=== PATIENT | male | born 1990 | race Caucasian/White ===

== ENCOUNTER 2021-10-01 12:17 | Emergency (ER) | payer OTHER, SELFPAY ==
--- NOTE | 2021-10-01 12:18 | PC.NURSE ---
Patient walked out of ED without difficulty, angry that he will have to wait for a room and that I am unable to give him anxiety medications at the intake desk.
== END 2021-10-01 13:02 | disposition left against medical advice (07) ==
DX: Z53.21 Procedure and treatment not carried out due to patient leaving prior to being seen by health care provider (principal)
CPT/HCPCS: 99199

== ENCOUNTER 2023-10-24 12:52 | Emergency (ER) | payer OTHER, SELFPAY ==
[2023-10-24 12:54] VITALS: BP 139/100; PULSE 99; RESP 24; TEMP 36.3; O2SAT 100
--- NOTE | 2023-10-24 13:12 | ECG_ITS ---
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 Measurements Intervals [place] Rate: 82 P: 52 [place]: 169 QRS: 18 QRSD: 89 T: 22 QT: 349 QTc: 409 Interpretive Statements SINUS RHYTHM NORMAL ELECTROCARDIOGRAM No previous ECG available for comparison Electronically Signed On 10-25-2023 07:56:03 CDT by Roberto Newsome M.D.
--- NOTE | 2023-10-24 13:13 | ED.GENADULT ---
HPI - General Adult General Chief complaint: Anxiety Stated complaint: anxiety Time Seen by Provider: 10/24/23 13:12 History of Present Illness HPI narrative: Patient is a 33-year-old male with history of anxiety disorder, PTSD here with concerns for a panic attack. Patient states that he was recently incarcerated and when [place] living they did not transfer his medications and he has been out of his Atarax for the last 5 days or so. He states over the last 2 days he has had extreme worsening that this anxiety. He notes that he has impending sense of doom, shortness of breath, tingling in his mouth, hands, feet and feeling as though he may pass out. He notes he is prescribed 75 mg of hydroxyzine in extended release daily. He typically follows with either Derick or Courtney for his mental health treatment. He denies any drug use, denies any alcohol use. He denies any suicidal or homicidal ideation. Related Data Allergies Allergy/AdvReac Type Severity Reaction Status Date / Time No Known Allergies Allergy Verified 10/24/23 13:56 Review of Systems Review of Systems: All systems reviewed & are unremarkable except as noted in HPI and below PMFSH Social History Social History Substance use type: does not use Exam Narrative: GENERAL: Well-appearing, well-nourished, and in no acute distress. HEAD: Normocephalic, atraumatic. EYES: PERRLA and EOMI. ENT: Nares clear. Mucous membranes moist. NECK: Supple. CHEST: Clear to auscultation. No respiratory distress. HEART: Tachycardic. Normal peripheral pulses. ABDOMEN: Soft, nontender, nondistended. EXTREMITIES: Normal range of motion. No edema. SKIN: Warm, dry, no rash. NEURO: No focal deficits. Alert and oriented x3. No sensory deficits appreciated. PSYCH: Normal mood and affect. Course Course Emergency Course: Chart review performed. Patient here with anxiety. Has reportedly been out of his Atarax for 5-7 days. Triage vitals show tachypnea. Patient seen evaluated, nontoxic appearing. Suspect he is likely having worsening anxiety due to lack of his medication over the last 5 days. Will do dose of Ativan here as well as a screening EKG. He has clear bilateral lung sounds, no neurologic deficits on exam. Not believe there is currently no indication for lab work are imaging at this time. Will do dose of ativan and reevaluate. Likely plan for discharge with short term prescription for his home hydroxyzine until he is able to follow with his primary mental health provider. Patient agreeable to workup and plan. Patient continues to have symptoms after dose of Ativan. Will give dose of Atarax. Given persistent symptoms, will do basic labs to evaluate for possible electrolyte abnormalities. Patient agreeable. Patient endorsed continued symptoms to nursing staff. Will attempt haldol/benadryl. Patient refused haldol/benadryl. Lab work and EKG grossly normal. Spoke with patient and reevaluated. He does note that his symptoms had improved with ativan, just not fully gone away. Will do additional dose of ativan here in the department and discussed plan for refilling his prescription for Atarax at discharge and he can discuss need for benzodiazepines or any additional medications with his psychiatry team. The results of pertinent diagnostic studies and exam findings were discussed. The patient?s provisional diagnosis and plan of care were discussed with the patient and present family. The patient and/or present family expressed understanding of the diagnosis and plan. The nurse was instructed to provide written instructions and appropriate follow-up information. The patient understands their need and responsibility to obtain additional follow-up as instructed. The risks of medications administered and prescribed were discussed with the patient and family present. Vital Signs Vital signs: Vital Signs Temperature 97.3 F L 10/24/23 12:54 Pulse Ra
[2023-10-24] MEDS: LORazepam (*CRX) 1 MG TABLET PO ×2 (13:56→17:28)
[2023-10-24] MEDS: hydrOXYzine HCL 25 MG TABLET 50 MG PO (14:40)
[2023-10-24 15:26] LABS: Basophils Percent Auto 0.4 % (0.2-1.2); Eosinophils Absolute Auto 0.2 K/mm3 (0-0.3); Eosinophils Percent Auto 1.8 % (0-4.4); Hematocrit 38.5 % (42.0-52.0); Hemoglobin 13.2 g/dL (14.0-18.0); Immature Granulocyte Absolute 0.03 K/mm3 (0.00-0.031); Immature Granulocyte Percent A 0.4 % (0-0.5); Lymphocytes Absolute Auto 2.68 K/mm3 (0.9-3.2); Lymphocytes Percent Auto 31.3 % (18.3-44.2); Mean Corpuscular HGB Conc 34.3 g/dl (32-36); Mean Corpuscular Hemoglobin 30.1 pg (26-34); Mean Corpuscular Volume 87.9 fl (80-100); Mean Platelet Volume 9.5 fl (7.4-10.4); Monocytes Percent Auto 11.3 % (2.6-8.5); Neutrophils Absolute Auto 4.7 K/mm3 (1.3-6.7); Neutrophils Percent Auto 54.8 % (45.5-73.1); Platelet Count Result 314 k/mm3 (150-375); Red Blood Count 4.38 M/mm3 (4.6-6.20); Red Cell Distribution Width 13.2 % (11.5-14.5); White Blood Count 8.6 K/mm3 (4.5-10.0)
[2023-10-24 15:47] LABS: Alanine Aminotransferase 23 U/L (6-50); Albumin Level 4.2 g/dL (3.5-5.1); Alkaline Phosphatase 54 U/L (38-126); Anion Gap 7 mmol/L (4-12); Aspartate Amino Transferase 20 U/L (17-59); Bilirubin,Total 0.4 mg/dL (0.2-1.3); Blood Urea Nitrogen 12 mg/dL (9-20); Calcium 8.9 mg/dL (8.4-10.2); Carbon Dioxide 26 mmol/L (22-30); Chloride 109 mmol/L (98-107); Estimated CRCL calculation 155 ml/min; Estimated Glomerular Filt Rate > 60; Glucose 96 mg/dL (65-110); Potassium 3.9 mmol/L (3.4-5.0); Sodium 142 mmol/L (137-145)
--- NOTE | 2023-10-24 16:46 | PC.NURSE ---
went to start iv and give pt ordered medication. pt refusing medication, stating i just want what you guys prescribed me years ago. pt is unable to remember what medication was or when exactly he was prescribed it. pt ademantly refusing medication at this time
[2023-10-24 17:02] VITALS: BP 139/75; PULSE 78; RESP 16; TEMP 36.3; O2SAT 99
[2023-10-24 17:56] VITALS: BP 128/77; PULSE 70; RESP 16; TEMP 37; O2SAT 99
== END 2023-10-24 17:57 | disposition home or self-care (01) ==
PROVIDERS: Emergency Provider Student in an Organized Health Care Education/Training Program
DX: F41.9 Anxiety disorder, unspecified (principal); F43.10 Post-traumatic stress disorder, unspecified
CPT/HCPCS: 36415; 80053; 83735; 85025; 93005; 99283; A9270

== ENCOUNTER 2024-11-03 12:29 | Emergency (ER) | payer OTHER, SELFPAY ==
[2024-11-03 12:33] VITALS: BP 124/90; PULSE 105; RESP 22; O2SAT 100
--- NOTE | 2024-11-03 13:16 | ED.PSYCH ---
HPI - Psych General Chief Complaint: Psychiatric Symptoms <ANKUR Abreu Last Filed: 11/03/24 19:00> Stated Complaint: SI, Anxiety, off meds for several months <ANKUR Abreu Last Filed: 11/03/24 19:00> Time Seen by Provider: 11/03/24 12:42 <ANKUR Abreu Last Filed: 11/03/24 19:00> Source: patient <ANKUR Abreu Last Filed: 11/03/24 19:00> Mode of arrival: ambulatory <ANKUR Abreu Last Filed: 11/03/24 19:00> Limitations: no limitations <ANKUR Abreu Last Filed: 11/03/24 19:00> History of Present Illness HPI Narrative: Patient is a 34-year-old male, with past medical history of depression/anxiety, who presents to the ED with report of anxiety and SI. Patient reports he has been feeling increasingly anxious and having suicidal thoughts over the last few weeks. States he has been off his normal psychiatric medications for quite some time. Previously was on hydroxyzine, clonidine, Ativan. Reports having a specific plan for killing himself, but does not want to talk about it. Denies any attempts today. Has had previous suicide attempts. States he wants to self admit himself to a psychiatric hospital. Reports previous hospitalizations. <ANKUR Abreu Last Filed: 11/03/24 19:00> Related Data Allergies/Adverse Reactions: Allergies Allergy/AdvReac Type Severity Reaction Status Date / Time No Known Allergies Allergy Verified 11/03/24 12:30 <ANKUR Abreu Last Filed: 11/03/24 19:00> Review of Systems Review of Systems: All systems reviewed & are unremarkable except as noted in HPI. <ANKUR Abreu Last Filed: 11/03/24 19:00> All systems reviewed & are unremarkable except as noted in HPI and below <ANKUR Abreu Last Filed: 11/03/24 19:00> PMFSH Social History Social History: Social History Substance use type: does not use <Edel Diaz PA-C - Last Filed: 11/03/24 19:00> Exam Narrative: GENERAL: Well appearing, well-nourished, non-toxic, in no acute distress. HEAD: Normocephalic, atraumatic. RESPIRATORY: Airway patent, respirations nonlabored. CARDIOVASCULAR: Regular rate and rhythm MUSCULOSKELETAL: Moves all extremities. No gross deformities. SKIN: Warm, dry, normal color. NEURO: A&O X3. Speech clear. PSYCHIATRIC: Somewhat agitated and anxious appearing. Normal interaction. 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 I performed all aspects of the MDM as documented. <Lazarus Martinez MD - Last Filed: 11/09/24 15:16> Vital Signs Vital signs: Vital Signs Pulse Rate 105 H 11/03/24 12:33 Respiratory Rate 22 H 11/03/24 12:33 Blood Pressure 124/90 11/03/24 12:33 Pulse Oximetry 100 11/03/24 12:33 Oxygen Delivery Room Air 11/03/24 12:33 Temperature 98.8 F 11/03/24 18:55 Pulse Rate 70 11/03/24 21:51 Respiratory Rate 17 11/03/24 21:51 Blood Pressure 144/90 H 11/03/24 21:51 Pulse Oximetry 99 11/03/24 21:51 Oxygen Delivery Room Air 11/03/24 12:33 <Edel Diaz PA-C - Last Filed: 11/03/24 19:00> Vital Signs Pulse Rate 105 H 11/03/24 12:33 Respiratory Rate 22 H 11/03/24 12:33 Blood Pressure 124/90 11/03/24 12:33 Pulse Oximetry 100 11/03/24 12:33 Oxygen Delivery Room Air 11/03/24 12:33 Temperature 98.8 F 11/03/24 18:55 Pulse Rate 70 11/03/24 21:51 Respiratory Rate 17 11/03/24 21:51 Blood Pressure 144/90 H 11/03/24 21:51 Pulse Oximetry 99 11/03/24 21:51 Oxygen Delivery Room Air 11/03/24 12:33 <Lazarus Martinez MD - Last Filed: 11/09/24 15:16> MDM - Psych MDM Narrative Medical decision making narrative: Patient presented to ED with anxiety, SI. ED psych workup was initiated. Workup unremarkable. UDS positive for amphetamines. Patient medically cleared to undergo psychiatric evaluation by crisis. Crisis evaluated patient and determined him to meet criteria for inpatient psychiatric placement. Patient currently under voluntary status. Awaiting bed placement. Patient received bed at [facility]. Will arrange for transportation. Patient has not had any issues throughout ED stay. <Edel Diaz PA-C - Last Filed: 11/03/24 19:00> Medical Records Attestation: I reviewed the patient's medical records. <Edel Diaz PA-C - Last Filed: 11/03/24 19:00> Lab Data Attestation: I reviewed the patient's lab results. <Edel Diaz PA-C - Last Filed: 11/03/24 19:00> Result diagrams: 11/03/24 13:16 11/03/24 13:16 <Edel Diaz PA-C - Last Filed: 11/03/24 19:00> Labs: Lab Results 11/03/24 11/03/24 11/03/24 Range/Units 13:15 13:16 13:19 WBC 13.9 H (4.5-10.0) K/mm3 RBC 5.40 (4.6-6.20) M/mm3 Hgb 15.9 (14.0-18.0) g/dL Hct 47.6 (42.0-52.0) % MCV 88.1 (80-100) fl MCH 29.4 (26-34) pg MCHC 33.4 (32-36) g/dl RDW 13.0 (11.5-14.5) % Plt Count 453 H (150-375) k/mm3 MPV 10.0 (7.4-10.4) fl Immature Gran % (Auto) 0.3 (0-0.5) % Neut % (Auto) 64.4 (45.5-73.1) % Lymph % (Auto) 20.4 (18.3-44.2) % [place] % (Auto) 10.8 H (2.6-8.5) % Eos % (Auto) 3.7 (0-4.4) % Baso % (Auto) 0.4 (0.2-1.2) % Lymph # (Auto) 2.83 (0.9-3.2) K/mm3 [place] # (Auto) 1.5 H (0.1-0.6) K/mm3 Eos # (Auto) 0.5 H (0-0.3) K/mm3 Baso # (Auto) 0.1 (0.0-0.1) K/mm3 Abs Immat Gran (auto) 0.04 H (0.00-0.031) K/mm3 Absolute Neuts (auto) 8.9 H (1.3-6.7) K/mm3 Absolute Nucleated RBC 0.000 (0.0-0.012) K/mm3 Nucleated RBC % 0.0 (0.0-0.2) % Sodium 140 (137-145) mmol/L Potassium 3.5 (3.4-5.0) mmol/L Chloride 105 (98-107) mmol/L Carbon Dioxide 23 (22-30) mmol/L Anion Gap 12 (4-12) mmol/L BUN 12 (9-20) mg/dL Creatinine 0.69 L (0.7-1.3) mg/dL Estim Creat Clear Calc Not Reportable Estimated GFR > 60 (59 - ) Glucose 99 (65-110) mg/dL POC Capillary Glucose 94 (65-105) mg/dl Calcium 9.2 (8.4-10.2) mg/dL Total Bilirubin 0.3 (0.2-1.3) mg/dL AST 24 (17-59) U/L ALT 19 (6-50) U/L Alkaline Phosphatase 69 (38-126) U/L Total Protein 7.3 (6.3-8.2) g/dL Albumin 4.5 (3.5-5.1) g/dL TSH (Reflex) 1.020 (0.465-4.68) uIU/mL Urine Color Dark yellow (Yellow) Urine Appearance Clear (Clear) Urine pH 6.0 (5.0-9.0) Ur Specific [place] 1.037 H (1.001-1.035) Urine Protein 1+ H (Negative) mg/dL Urine Glucose (UA) Negative (Negative) mg/dL Urine Ketones 1+ H (Negative) mg/dL Ur Blood (Man) Negative (Negative) Urine Nitrate Negative (Negative) Urine Bilirubin Negative (Negative) Urine Urobilinogen 1.0 (<2.0) mg/dL Add Ur Microanalysis Reviewed Leukocyte Esterase Rfl Trace H (Negative) [place]/UL Urine RBC 0-2 (0-2) /hpf Urine WBC 0-5 (0-3) /hpf Ur Squamous Epith Cells None seen (Few) /hpf Calcium Oxalate Crystal Present (None) /hpf Urine Bacteria None seen /hpf Urine Casts 0-2 Salicylates < 1.0 L (2-20) mg/dL Urine Opiates Screen Negative (Negative) Urine Methadone Screen Negative (Negative) Acetaminophen < 10 L (10-30) ug/mL Ur Barbiturates Screen Negative (Negative) Ur Phencyclidine Scrn Negative (Negative) Ur Amphetamine Screen Positive A (Negative) U Benzodiazepines Scrn Negative (Negative) Urine Cocaine Screen Negative (Negative) U Cannabinoids Screen Negative (Negative) Ethyl Alcohol < 10 (<10) mg/dL SARS-CoV-2 RNA (RT-PCR) Negative (Negative) <Edel Diaz PA-C - Last Filed: 11/03/24 19:00> Lab Results 11/03/24 11/03/24 11/03/24 Range/Units 13:15 13:16 13:19 WBC 13.9 H (4.5-10.0) K/mm3 RBC 5.40 (4.6-6.20) M/mm3 Hgb 15.9 (14.0-18.0) g/dL Hct 47.6 (42.0-52.0) % MCV 88.1 (80-100) fl MCH 29.4 (26-34) pg MCHC 33.4 (32-36) g/dl RDW 13.0 (11.5-14.5) % Plt Count 453 H (150-375) k/mm3 MPV 10.0 (7.4-10.4) fl Immature Gran % (Auto) 0.3 (0-0.5) % Neut % (Auto) 64.4 (45.5-73.1) % Lymph % (Auto) 20.4 (18.3-44.2) % [place] % (Auto) 10.8 H (2.6-8.5) % Eos % (Auto) 3.7 (0-4.4) % Baso % (Auto) 0.4 (0.2-1.2) % Lymph # (Auto) 2.83 (0.9-3.2) K/mm3 [place] # (Auto) 1.5 H (0.1-0.6) K/mm3 Eos # (Auto) 0.5 H (0-0.3) K/mm3 Baso # (Auto) 0.1 (0.0-0.1) K/mm3 Abs Immat Gran (auto) 0.04 H (0.00-0.031) K/mm3 Absolute Neuts (auto) 8.9 H (1.3-6.7) K/mm3 Absolute Nucleated RBC 0.000 (0.0-0.012) K/mm3 Nucleated RBC % 0.0 (0.0-0.2) % Sodium 140 (137-145) mmol/L Potassium 3.5 (3.4-5.0) mmol/L Chloride 105 (98-107) mmol/L Carbon Dioxide 23 (22-30) mmol/L Anion Gap 12 (4-12) mmol/L BUN 12 (9-20) mg/dL Creatinine 0.69 L (0.7-1.3) mg/dL Estim Creat Clear Calc Not Reportable Estimated GFR > 60 (59 - ) Glucose 99 (65-110) mg/dL POC Capillary Glucose 94 (65-105) mg/dl Calcium 9.2 (8.4-10.2) mg/dL Total Bilirubin 0.3 (0.2-1.3) mg/dL AST 24 (17-59) U/L ALT 19 (6-50) U/L Alkaline Phosphatase 69 (38-126) U/L Total Protein 7.3 (6.3-8.2) g/dL Albumin 4.5 (3.5-5.1) g/dL TSH (Reflex) 1.020 (0.465-4.68) uIU/mL Urine Color Dark yellow (Yellow) Urine Appearance Clear (Clear) Urine pH 6.0 (5.0-9.0) Ur Specific [place] 1.037 H (1.001-1.035) Urine Protein 1+ H (Negative) mg/dL Urine Glucose (UA) Negative (Negative) mg/dL Urine Ketones 1+ H (Negative) mg/dL Ur Blood (Man) Negative (Negative) Urine Nitrate Negative (Negative) Urine Bilirubin Negative (Negative) Urine Urobilinogen 1.0 (<2.0) mg/dL Add Ur Microanalysis Reviewed Leukocyte Esterase Rfl Trace H (Negative) [place]/UL Urine RBC 0-2 (0-2) /hpf Urine WBC 0-5 (0-3) /hpf Ur Squamous Epith Cells None seen (Few) /hpf Calcium Oxalate Crystal Present (None) /hpf Urine Bacteria None seen /hpf Urine Casts 0-2 Salicylates < 1.0 L (2-20) mg/dL Urine Opiates Screen Negative (Negative) Urine Methadone Screen Negative (Negative) Acetaminophen < 10 L (10-30) ug/mL Ur Barbiturates Screen Negative (Negative) Ur Phencyclidine Scrn Negative (Negative) Ur Amphetamine Screen Positive A (Negative) U Benzodiazepines Scrn Negative (Negative) Urine Cocaine Screen Negative (Negative) U Cannabinoids Screen Negative (Negative) Ethyl Alcohol < 10 (<10) mg/dL SARS-CoV-2 RNA (RT-PCR) Negative (Negative) <Lazarus Martinez MD - Last Filed: 11/09/24 15:16> Discharge Plan Discharge Clinical Impression: Anxiety, Depression with suicidal ideation <Edel Diaz PA-C - Last Filed: 11/03/24 19:00> Patient Disposition: Psychiatric Hosp <Edel Diaz PA-C - Last Filed: 11/03/24 19:00> Condition: Serious <Edel Diaz PA-C - Last Filed: 11/03/24 19:00> Patient Language: Portuguese <Edel Diaz PA-C - Last Filed: 11/03/24 19:00> Prescriptions: No Action hydroxyzine pamoate 50 mg capsule 50 mg PO BID PRN (Reason: anxiety) Qty: 10 0RF <Edel Diaz PA-C - Last Filed: 11/03/24 19:00> Follow-up/Referrals: UNKNOWN,DOCTOR [Non-Staff] - <Edel Diaz PA-C - Last Filed: 11/03/24 19:00>
[2024-11-03 13:17] LABS: Glucose Point of Care 94 mg/dl (65-105)
[2024-11-03 13:29] LABS: Basophils Absolute Auto 0.1 K/mm3 (0.0-0.1); Basophils Percent Auto 0.4 % (0.2-1.2); Eosinophils Absolute Auto 0.5 K/mm3 (0-0.3); Eosinophils Percent Auto 3.7 % (0-4.4); Hematocrit 47.6 % (42.0-52.0); Hemoglobin 15.9 g/dL (14.0-18.0); Immature Granulocyte Absolute 0.04 K/mm3 (0.00-0.031); Immature Granulocyte Percent A 0.3 % (0-0.5); Lymphocytes Absolute Auto 2.83 K/mm3 (0.9-3.2); Lymphocytes Percent Auto 20.4 % (18.3-44.2); Mean Corpuscular HGB Conc 33.4 g/dl (32-36); Mean Corpuscular Hemoglobin 29.4 pg (26-34); Mean Corpuscular Volume 88.1 fl (80-100); Monocytes Absolute Auto 1.5 K/mm3 (0.1-0.6); Monocytes Percent Auto 10.8 % (2.6-8.5); Neutrophils Absolute Auto 8.9 K/mm3 (1.3-6.7); Neutrophils Percent Auto 64.4 % (45.5-73.1); Platelet Count Result 453 k/mm3 (150-375); White Blood Count 13.9 K/mm3 (4.5-10.0)
[2024-11-03 13:39] LABS: Alanine Aminotransferase 19 U/L (6-50); Albumin Level 4.5 g/dL (3.5-5.1); Alkaline Phosphatase 69 U/L (38-126); Anion Gap 12 mmol/L (4-12); Aspartate Amino Transferase 24 U/L (17-59); Bilirubin,Total 0.3 mg/dL (0.2-1.3); Blood Urea Nitrogen 12 mg/dL (9-20); Calcium 9.2 mg/dL (8.4-10.2); Carbon Dioxide 23 mmol/L (22-30); Chloride 105 mmol/L (98-107); Estimated Glomerular Filt Rate > 60; Glucose 99 mg/dL (65-110); Potassium 3.5 mmol/L (3.4-5.0); Sodium 140 mmol/L (137-145); Total Protein 7.3 g/dL (6.3-8.2)
[2024-11-03 13:41] LABS: Acetaminophen < 10 ug/mL (10-30); Salicylate < 1.0 mg/dL (2-20)
[2024-11-03 13:44] LABS: Add Urine Microscopic? YES; Appearance Urine Clear (Clear); Bacteria Urine None Seen /hpf; Bilirubin Urine Negative (Negative); Blood Urine Negative (Negative); Calcium Oxalate Crystals Urine Present /hpf; Color Urine Dark Yellow (Yellow); Ethanol < 10 mg/dL (<10); Glucose Urine UA Negative (Negative); Ketones Urine 1+ mg/dL (Negative); Leukocyte Esterase Ur Trace LEU/UL (Negative); Need Manual Microscopic Reviewed; Nitrate Urine Negative (Negative); Non Pathogenic Casts 0-2; Protein Urine 1+ mg/dL (Negative); RBC Urine 0-2 /hpf (0-2); Specific Grav Ur 1.037 (1.001-1.035); Squamous Epithelial Cell Urine None Seen /hpf (Few); WBC Urine 0-5 /hpf (0-3)
[2024-11-03] MEDS: LORazepam (*CRX) 0.5 MG TABLET PO (13:44)
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
--- OUTSIDE RECORDS SUMMARY | 2024-11-03 13:55 | XMS_ITS | Clinical Summary ---
Author Organization [facility] Address [address] [address] Care Team Providers Care Blasting Cap Assembler Name Role Phone Unavailable Primary Care Provider Unavailabl e Source Comments [facility],non-owned Affiliates and Associated Physician Practices is amultiple site organization consisting of ambulatory clinics and hospital sitesin [place], [place], [place] and [place]. This disclosure is being madepursuant to the Care Everywhere program and may not contain all information available regarding this patient. Last updated 18.[facility] Medications * Be aware that medications may not be up to date on this document. Alwaysverify current medications with the patient. HYDROcodone-acet aminophen (NORCO) 5-325 MG tablet Take 1 tablet by mouth q6h PRN (Pain). 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 Gender Identity Not on file Sexual Orientation Not on file Last Filed Vital Signs Vital Sign Reading Time Taken Comments Blood Pressure 126/76 05/06/2017 11:59 AM TELECOMMUNICATIONS 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 Pulse 96 05/06/2017 11:59 AM TELECOMMUNICATIONS 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 Temperature 36.5 C (97.7 F) 05/06/2017 6:22 AM TELECOMMUNICATIONS 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 Respiratory Rate 20 05/06/2017 11:59 AM TELECOMMUNICATIONS 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 Oxygen Saturation 94% 05/06/2017 7:49 AM TELECOMMUNICATIONS 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 Inhaled Oxygen Concentration - - Weight 99.8 kg (220 lb) 05/06/2017 6:22 AM TELECOMMUNICATIONS 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 Height 170.2 cm (5' 7) 05/06/2017 6:22 AM TELECOMMUNICATIONS 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 Body Mass Index 34.46 05/06/2017 6:22 AM TELECOMMUNICATIONS 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 Plan of Treatment Health Maintenance Due Date Last Done Comments HIV SCREENING 2006 HEPATITIS C SCREENING 04/17/2009 HEPATITIS B VACCINE (1 of 3 - 19+ 3-dose series) 2010 COVID-19 VACCINE (2023-2 5 season) 2024 DEPRESSION SCREENING 05/19/2024 INFLUENZA VACCINE (Season Ended) 2025 DTAP/TDAP/TD VACCINES (2 - T d or Tdap) 05/06/2027 05/06/2017 ZOSTER VACCINE (1 of 2) 2041 HIB VACCINE Aged Out No longer eligi ble based on patient's age to complete this topic HPV VACCINE Aged Out No longer eligi ble based on patient's age to complete this topic MENINGOCOCCAL (Group B) VACC INE SHARED DECISION-MAKING Aged Out No longer eligibl e based on patient's age to complete this topic MENINGOCOCCAL GROUPS A/C/Y/W VACCINE Aged Out No longer eligible b ased on patient's age to complete this topic PNEUMOCOCCAL VACCINE Aged Out No long er eligible based on patient's age to complete this topic
--- OUTSIDE RECORDS SUMMARY | 2024-11-03 13:55 | XMS_ITS ---
Author Organization [facility] Address [address] [place] [address] Care Team Providers Care Mill Roll Operator Name Role Phone Corine Colon Primary Care Provider [phone] Allergies No Known Allergies REASON FOR VISIT Med FU last seen 10/29/23 Medications Medication SIG (Take, Route, Frequency, Duration) Notes Start Date End Date Status hydrOXYzine Pamoate 50 MG 1 capsule Oral ly three times a day as needed for 30 days 10/29/2023 Active Venlafaxine HCl ER 37.5 MG 1 tablet with food Orally Once a day for 30 days 07/16/2023 Not-Taking hydrOXYzine Pamoate 25 MG 1 capsule with 50 mg for 75 mg total Orally three times a day as needed for 30 days 10/29/2023 Active Encounters Encounter Location Date Provider Diagnosis [facility] [address] [place] [address] 03/31/2024 Corine Colon Plan Of Treatment No Information Progress Notes * Omid SILVAinDOB:1990 (34 yo M)Acc No.[id number]:03/31/2024 UNLOCKED PROGRESS NOTE Patient: Юлия SAWYER Elie Provider: ENMA Grace :1990 A ge:33 Y S ex:Male Date:03/31/2024 Address:[address] [place] [address], [address] [id number] Subjective: * Chief Complaints: * 1 . Med FU last seen 10/29/23. * Medical History: A nxiety. * Surgical History: D enies Past Surgical History. * Hospitalization/Major Diagno stic Procedure: P sychiatric inpatient stay - 1 night at [facility] [place] for anxiety. Received hydroxyzine 07/15/2023, Psychiatric inpatient stay 4-[address] [facility] for anxiety, received hydroxyzine and thorazine (reports) 05/2023, Psychiatric inpatient stay for anxiety and panic disorder 2014. * Family History: F ather: alive. M other: alive. 2 brother(s) , 1 sister(s) . . * Social History: P rimary Social History: L iving Arrangement L iving Arrangement: D ependent Living L iving with: P arent(s), Brother Alcohol Use A lcohol Use Frequency: N ever Illicit Substance Usage I llicit Substance Usage: N o Employment Status E mployment Status: U nemployed Tobacco Use - do not use T obacco Use: S tatus Reviewed with Patient T obacco Use Status Reviewed on: 0 07/16/2023 * Medications: T aking hydrOXYzine Pamoate 25 MG Capsule 1 capsule with 50 mg for 75 mg total Orally three times a day as needed , Taking hydrOXYzine Pamoate 50 MG Capsule 1 capsule Orally three times a day as needed , Not-Taking Venlafaxine HCl ER 37.5 MG Capsule Extended Release 24 Hour 1 tablet with food Orally Once a day * Allergies: N .K.D.A. Objective: * Vitals: Assessment: Plan: * Treatment: * * Electronic signature of Penny Colon on 11/03/2024 at 01:55 PM CDT Sign off status: Pending * Provider: Iain Colon, PMP Date: 05/31/2023 Generated for Matias gallego/Gracie/Scot on: 0 11/03/2024 01:55 PM CDT
--- OUTSIDE RECORDS SUMMARY | 2024-11-03 13:55 | XMS_ITS | Clinical Summary ---
Author Organization [facility] Address [address] [place] [address] Care Team Providers Care Felt Cementer Name Role Phone No, Physician Primary Care Provider [phone] Allergies No known active allergies Medications hydrOXYzine (VISTARIL) 25 mg capsule Take 1 capsule (25 mg total) by mouth 3 (three) times a day 10/29/2023 Active Encounters Date Type Department Care Team Description 09/21/[address] [address] Kim Aguilar RN 09/20/2024 7:23 PM CDT - 09/20/2024 10:42 PM CDT Emergency [address] [address] Discharge Disposition: Left without being seen from Last 3 Months Social History Tobacco Use Types Packs/Day Years Used Date Smoking Tobacco: Never Assessed Personal Safety Answer Date Recorded Have you ever been in or are you currently in a harmful physical or emotional relationship or is someone making you feel afraid or unsafe? 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 Gender Identity Not on file Sexual Orientation [...] 03/20/2024 5:22 AM CDT Plan of Treatment Health Maintenance Due Date Last Done Comments Depression Screening 1990 Hepatitis C Screening 1990 Varicella Vaccines (2 of 2 - 2-dose childhood series) 10/29/1999 08/06/1999 Regular Well Visit/Exam 18-64 2009 Influenza Vaccine (Season Ended) 2025 DTaP/Tdap/Td Vaccine (8 - Td or Tdap) 03/17/2032 03/17/2022, 05/06/2017, 12/08/2003, Additional history exists Hepatitis B Screening Completed 04/16/2001 , 02/06/2000, 01/30/1996 HPV Vaccines Aged Out No longer eligi ble based on patient's age to complete this topic Pneumococcal vaccine <65 Aged Out No longer eligible based on patient's age to complete this topic Procedures Procedure Name Priority Date/Time Associated Diagnosis [...] 10/10. Denies LOC. 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 Noted swelling and minimal deformity on nose [...] tissue injury as above. 4. Acute bilateral, ojxv-pjhafrt-ciil-right, nasal bone fractures as above at the [...] 9:38 PM - Electronically signed by Conor Cronin M.D. LUIZA T: Report ID: [id number] Reading Location: [id number] Procedure Note Conor Cronin MD - 09/20/2024 [...] 10/10. Denies LOC. 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 Noted swellingand minimal deformity on nose bridge [...] tissue injury as above. 4. Acute bilateral, onro-pfozfps-peed-right, nasal bone fractures asabove at the inferior [...] signed by Conor JARRETT T: Report ID: [id number] Reading Location: [id number] Jessy GUADARRAMA IMG CT PROCEDURES Deepti l Result from Last 3 Months Insurance Care Teams Felt Cementer Relationship Specialty Start Date End Date No, Physician PCP - General 06/30/22
--- OUTSIDE RECORDS SUMMARY | 2024-11-03 13:55 | XMS_ITS | Clinical Summary ---
Author Organization [facility] Address [facility] [place] [address] Care Team Providers Care Brush Cleaner Name Role Phone None, Provider Primary Care Provider Unavaila ble Allergies No known active allergies Medications No known medications Encounters Date Type Department Care Team Description 09/06/2024 1:45 PM CDT - 09/06/2024 2:39 PM CDT Emergency [facility] [place] [address] Krupa Avina PA Discharge Disposition: Left Against Medical Advice 09/06/2024 1:14 PM CDT - 09/06/2024 1:15 PM CDT Emergency [facility] [place] [address] Krupa Avina PA Medical Screening Discharge Disposition: Home or Self Care (Routine Discharge) 09/06/2024 Travel from Last 3 Months Immunizations Immunization Administration Dates Next Due Tdap (Boostrix) 03/17/2022 Family History Medical History Relation Comments Hypertension Brother None Father Heart Disease Maternal Grandmother None Mother Relation Status Comments Brother Father Alive Maternal Grandmother Mother Alive Social History Tobacco Use Types Packs/Day Years Used Date Smoking Tobacco: Former Cigarettes 1 10 1 07/10/2007 - 05/09/2018 Smokeless Tobacco: Never Tobacco Cessation:Counseling Given: Not Answered Alcohol Use Standard Drinks/Week Comments No 0 (1 standard drink = 0.6 oz pur e alcohol) Sex and Gender Information Value Date Recorded Sex Assigned at Male 09/06/2024 1:09 PM CDT Legal Sex Male 4:29 PM CDT Gender Identity Not on file Sexual Orientation Not on file Last Filed Vital Signs Vital Sign Reading Time Taken Comments Blood Pressure 154/96 09/06/2024 1:02 PM CDT Pulse 110 09/06/2024 1:02 PM CDT Temperature 36.3 C (97.4 F) 09/06/2024 1:02 PM CDT Respiratory Rate 18 09/06/2024 1:02 PM CDT Oxygen Saturation 99% 09/06/2024 1:02 PM CDT Inhaled Oxygen Concentration - - Weight 95.3 kg (210 lb) 09/06/2024 1:02 PM CDT Height 170.2 cm (5' 7) 09/06/2024 1:02 PM CDT Body Mass Index 32.89 09/06/2024 1:02 PM CDT Plan of Treatment Health Maintenance Due Date Last Done Comments Annual Physical 1994 Hepatitis C 2009 Hepatitis B Vaccines (1 of 3 - 19+ 3-dose series) 2010 COVID-19 Vaccine ( - 2023-2 5 season) 2024 DTaP, Tdap and Td Vaccines ( 4 - Td or Tdap) 03/17/2032 03/17/2022, 05/06/2017, 01/30/1996 HPV Vaccines Aged Out No longer eligi ble based on patient's age to complete this topic Meningococcal B Vaccine Aged Out No l onger eligible based on patient's age to complete this topic Meningococcal Vaccine Aged Out No karen deborah eligible based on patient's age to complete this topic Pneumococcal Vaccine: Pediatrics (0 to 5 Years) and At-Risk Patients (6 to 49 Years) Aged Out No longer eligible b ased on patient's age to complete this topic RSV Immunizations Under 20 Months Aged Out No longer eligible b ased on patient's age to complete this topic Insurance [facility] [address] Advance Directives Documents on File Type Date Recorded Patient Photo Checker Expl anation Legal Documents 06/12/2023 5:24 PM Legal Documents 06/12/2023 5:24 PM Legal Documents 06/12/2023 5:24 PM Legal Documents 03/06/2021 7:08 AM RECVD & CMPLTD ATTY REQ. FOR HB BILLS FOR [employer] Care Teams Brush Cleaner Relationship Specialty Start Date End Date None, Provider, PCP - General 05/29/18
--- OUTSIDE RECORDS SUMMARY | 2024-11-03 13:56 | XMS_ITS | Patient Health Record ---
Author Organization [facility] Address [address] [place] [address] Care Team Providers Care Pecan Grower Name Role Phone Corine Colon Primary Care Provider Allergies Allergen (clinical drug ingredient) Drug/Non Drug Allergy documented on EMR Reaction Allergy Type Onset Date Status No Known Drug Allergy Unknown Drug Allergy Active Reason For Referral Reason needs PCP Start in dividual therapy Diagnosis 1 Anxiety disorder, un specified (F41.9) Referral Organization [facility] Referring Provider First Name Corine Referring Provider Last Name Isaiah Referring Provider Speciality Psychiatry Referred Provider Specialty [facility] Clinical Notes David Nuno 04/30/2024 09:42:22 AM >Dry Cans Back Tender called and left voicemail message with return number., Debra Nuno 05/04/2024 01:37:37 PM > Called,a man that identified himself as not being Elie answered, individual was agreeable to taking down script writer's number so that Elie could call her back when he was back around., Debra Nuno 05/10/2024 02:49:06 PM > Dry Cans Back Tender sent letter to client's address, script writer will close out referral on 05/24 if she does not hear back. Referral Priority Routine Medications Medication SIG (Take, Route, Frequency, Duration) Notes Start Date End Date Status hydrOXYzine Pamoate 50 MG 1 capsule Oral ly three times a day as needed for 30 days Active Venlafaxine HCl ER 37.5 MG 1 tablet with food Orally Once a day for 30 days 07/16/2023 Not-Taking hydrOXYzine Pamoate 25 MG 1 capsule with 50 mg for 75 mg total Orally three times a day as needed for 30 days Active cloNIDine HCl 0.1 MG 1 tablet Orally thr ee times a day Active risperiDONE 2 MG 1 tablet Orally twic e a day for 30 days Active cloNIDine HCl 0.1 MG 1 tablet Orally thr ee times a day for 30 days Active Social History Tobacco Use: Social History Observation Description Date Details (start date - stop date) Former Smoker NA - 05/19/2020 Tobacco Control (Standard) Question Answer Notes Tobacco use: Former smoker When did you stop smoking? 05/19/2020 How long has it been since y ou last smoked? 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 Encounters Encounter Location Date Provider Diagnosis [address] [address] 04/07/2024 Corine Colon Anxiety disorder, unspecified F41.9 ; Trauma and stressor-related disorder F43.9 and Psychosis F29 [address] [address] 06/01/2024 Corine Colon Anxiety disorder, unspecified F41.9 ; Trauma and stressor-related disorder F43.9 and Psychosis F29 [address] [address] 03/23/2024 Corine Colon Assessments Encounter Date Diagnosis (ICD Code) Assessment Notes Treatment Notes Treatment Clinical Notes Section Notes 04/07/2024 Anxiety disorder, unspecified (ICD-10 - F41.9) 04/07/2024 Trauma and stressor-related disorder (ICD-10 - F43.9) 06/01/2024 Anxiety disorder, unspecified (ICD-10 - F41.9) 04/07/2024 Psychosis (ICD-10 - F29) Reports AVH and paranoia History: Reports hx of trauma starting in adolescence, had some conduct/behaviora l problems around this time and hanging around influential people. Hx of legal troubles, has been to custodial multiple times for various reasons to include fleeing and eluding. Currently, on probation for a stealing incident that occurred 4-5 years ago. Reports three previous psychiatric inpatient stays, most recent 07/15/23 - all for anxiety or panic related. Hx of taking Paxil (didn't like), Prozac (caused SI), Thorazine in hospital (unclear indication), hydroxyzine (ineffective, nausea). Denies any hx of AVH/psychosis/man ia, SI/SA/SIB/HI. Anxiety and panic starting in adolescence, trauma sx starting years ago. Hx of alcohol use and smoking cigarettes, last use 3 years ago. Lives between housing of father/brother. Not currently working, single, no children. Today's visit: Patient is a 33-year-old male who presents for a psychiatric follow-up over phone, located in [place]. Previously seen on 10/29/2023 and during this appt started on hydroxyzine as needed for anxiety. Upon review of documents: - 02/09 UDS positive for amphetamines, benzodiazepines, cannabinoids - 02/26/24 was in the ER for severe toxicology condition and was given an IM of psychotropic medication - 03/20/24 BP 164/105, Pulse 119, Temp 36.3, RR 20, O2 99%, Wt 182 lb, Ht 5'9 - Went to ER on 03/20/24 for Behavior problem and left AMA. Pt today is less irritable and demanding for benzodiazepines. His requesting to start individual therapy and needs referral for PCP, both have been placed. He reports he is now taking clonidine TID for his anxiety and continues to take hydroxyzine. as prescribed. Today he is reporting AVH/paranoid symptoms that he would like to take medications for, he is agreeable to trialing Risperdal 1 mg BID which is something he believes he's taken before without side effects. No acute safety concerns the time of this appt, he is agreeable to treatment plan and is provided an opportunity to ask questions. May self-administer medications or be administered own oral medications per [place] protocols. Provided informed consent with understanding of side effects, adverse effects, risks and benefits as well as alternative treatments as previously discussed and with the above recommended medications & other aspects of the treatment program. Agrees to return sooner if symptoms worsen or suicidal or homicidal ideations occur. 06/01/2024 Trauma and stressor-related disorder (ICD-10 - F43.9) 06/01/2024 Psychosis (ICD-10 - F29) Reports AVH and paranoia History: Reports hx of trauma starting in adolescence, had some conduct/behaviora l problems around this time and hanging around influential people. Hx of legal troubles, has been to custodial multiple times for various reasons to include fleeing and eluding. Currently, on probation for a stealing incident that occurred 4-5 years ago. Reports three previous psychiatric inpatient stays, most recent 07/15/23 - all for anxiety or panic related. Hx of taking Paxil (didn't like), Prozac (caused SI), Thorazine in hospital (unclear indication), hydroxyzine (ineffective, nausea). Denies any hx of AVH/psychosis/man ia, SI/SA/SIB/HI. Anxiety and panic starting in adolescence, trauma sx starting years ago. Hx of alcohol use and smoking cigarettes, last use 3 years ago. Lives between housing of father/brother. Not currently working, single, no children. Today's visit: Patient is a 33-year-old male who presents for a psychiatric follow-up over phone, located in [place]. Previously seen on 04/07/2024 and during this appt was started on Risperidone 1 mg BID and continued on clonidine and hydroxyzine. PHQ-9 score of 2. Reports Risperidone helpful for AVH, but has not noticed a decrease in paranoia. Anxiety partially helped with clonidine and hydroxyzine. Discussed paranoia likely a contributor to his anxiety. He is agreeable to increasing Risperdal to 2 mg BID and continuing other medication as prescribed. Denies any side effects. He denies any substance use to include cannabis. Unable to complete AIMS due to nature of appt, denies any irregular muscle movements; would benefit from an in person appointment.No acute safety concerns the time of this appt, he is agreeable to treatment plan and is provided an opportunity to ask questions. May self-administer medications or be administered own oral medications per [place] protocols. Provided informed consent with understanding of side effects, adverse effects, risks and benefits as well as alternative treatments as previously discussed and with the above recommended medications & other aspects of the treatment program. Agrees to return sooner if symptoms worsen or suicidal or homicidal ideations occur. 03/23/2024 Other Plan Of Treatment No Information Insurance Providers Payer Name Payer Address Payer Phone Subscriber Number Group Number Insured Name Patient Relationship to Insured Coverage Start Date Coverage End Date [employer] [facility] Attn Claims Department [address] [place] [address] [id number] Elie Todd Self - patient is the insured 3 [employer] Attn Claims Department [address] [place] [address] [id number] Elie Todd Self - patient is the insured 4 Medical (General) History Medical History History ICD Code anxiety Surgical History Surgery Date(Month/Year) denies Hospitalization History Reason Date(Month/Year) Psychiatric inpatient stay for anxiety and panic disorder 2014 Psychiatric inpatient stay 4 -5 nights at [facility] for anxiety, received hydroxyzine and thorazine (reports) 05/2023 Psychiatric inpatient stay - 1 night at [facility] for anxiety. Received hydroxyzine 07/15/2023
[2024-11-03 13:59] LABS: Barbiturate Screen Urine Negative (Negative); Benzodiazepines Screen Urine Negative (Negative); Cannabinoid Screen Urine Negative (Negative); Cocaine Screen Urine Negative (Negative); Methadone Screen Urine Negative (Negative); Opiate Screen Urine Negative (Negative); Phencyclidine Screen Urine Negative (Negative)
[2024-11-03 14:06] LABS: SARS-CoV-2 RNA PCR Negative (Negative)
--- OUTSIDE RECORDS SUMMARY | 2024-11-03 15:14 | XMS_ITS | Clinical Summary ---
Author Organization [facility] Address [address] [place] [address] Care Team Providers Care Hook Up Name Role Phone No, Physician Primary Care Provider [phone] Allergies No known active allergies Medications hydrOXYzine (VISTARIL) 25 mg capsule Take 1 capsule (25 mg total) by mouth 3 (three) times a day 10/29/2023 Active Encounters Date Type Department Care Team Description 09/21/[address] [address] Kim Aguilar RN 09/20/2024 7:23 PM CDT - 09/20/2024 10:42 PM CDT Emergency [address] [address] Discharge Disposition: Left without being seen from [...] on file 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 Denies LOC. Pt denies administering medication [address] FREIGHT. Noted swelling and minimal deformity on nose [...] tissue injury as above. 4. Acute bilateral, jtel-lxifbzo-wohf-right, nasal bone fractures as above at the [...] Conor Cronin M.D. LUIZA T: Report ID: [id number] Reading Location: [id number] Procedure Note Conor Cronin MD - 09/20/2024 [...] 10/10. Denies LOC. Pt denies administering medication [address] FREIGHT. Noted swellingand minimal deformity on nose bridge [...] tissue injury as above. 4. Acute bilateral, xgef-koozrli-amol-right, nasal bone fractures asabove at the inferior [...] signed by Conor JARRETT T: Report ID: [id number] Reading Location: [id number] Jessy GUAD[address]AMA IMG CT PROCEDURES Deepti l Result from Last 3 Months Insurance Care Teams Hook Up Relationship Specialty Start Date End Date No, Physician PCP - General 06/30/22
--- OUTSIDE RECORDS SUMMARY | 2024-11-03 15:14 | XMS_ITS | Referral Summary ---
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 Denies LOC. Pt denies administering medication SLIP FEEDER. Noted swelling and minimal deformity on nose [...] tissue injury as above. 4. Acute bilateral, elve-huktsfj-zoak-right, nasal bone fractures as above at the [...] signed by Conor JARRETT T: Report ID: [id number] Reading Location: [id number] Procedure Note Conor Cronin MD - 09/20/2024 [...] 10/10. Denies LOC. Pt denies administering medication SLIP FEEDER. Noted swellingand minimal deformity on nose bridge [...] tissue injury as above. 4. Acute bilateral, zwdp-jbcctqi-llme-right, nasal bone fractures asabove at the inferior [...] signed by Conor JARRETT T: Report ID: [id number] Reading Location: [place] [address] PROCEDURES Deepti l Result from Last 3 Months Insurance Care Teams Condenser Tube Tender Relationship Specialty Start Date End Date No, Physician PCP - General 06/30/22
--- OUTSIDE RECORDS SUMMARY | 2024-11-03 15:15 | XMS_ITS | Clinical Summary ---
Author Organization [facility] Address [address] [place] [address] Care Team Providers Care Informatica Architect Name Role Phone Unavailable Primary Care Provider Unavailabl e Source Comments [facility],non-owned Affiliates and Associated Physician Practices is amultiple site organization consisting of ambulatory clinics and hospital sitesin [place], [place], [place] and [place]. This disclosure is being madepursuant to the Care Everywhere program and may not contain all information available regarding this patient. 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 Gender Identity Not on file Sexual Orientation Not on file Last Filed Vital Signs Vital Sign Reading Time Taken Comments Blood Pressure 126/76 05/06/2017 11:59 AM IMAGING SPECIALIST Pulse 96 05/06/2017 11:59 AM IMAGING SPECIALIST Temperature 36.5 C (97.7 F) 05/06/2017 6:22 AM IMAGING SPECIALIST Respiratory Rate 20 05/06/2017 11:59 AM IMAGING SPECIALIST Oxygen Saturation 94% 05/06/2017 7:49 AM IMAGING SPECIALIST Inhaled Oxygen Concentration - - Weight 99.8 kg (220 lb) 05/06/2017 6:22 AM IMAGING SPECIALIST Height 170.2 cm (5' 7) 05/06/2017 6:22 AM IMAGING SPECIALIST Body Mass Index 34.46 05/06/2017 6:22 AM IMAGING SPECIALIST Plan of Treatment Health Maintenance Due Date [...]
[2024-11-03 15:26] LABS: Amphetamine Screen Urine Positive (Negative)
[2024-11-03 18:55] VITALS: BP 149/99; PULSE 97; RESP 16; TEMP 37.1; O2SAT 98
--- NOTE | 2024-11-03 21:48 | PC.NURSE ---
Pt accepted and received bed at [facility]. Room 5328-A. Report called to RAUL Newton at 2120. [facility] at this facility and transporting patient at this time. Pt sent with elise paperwork, EMTALA form, original Voluntary petition with accepting facility name on front, and ED visit summary. Pt VS stable prior to transport.
[2024-11-03 21:51] VITALS: BP 144/90; PULSE 70; RESP 17; O2SAT 99
== END 2024-11-03 21:51 ==
PROVIDERS: Emergency Medicine; Emergency Provider Physician Assistant
DX: F41.9 Anxiety disorder, unspecified (principal); F32.A Depression, unspecified; R45.851 Suicidal ideations; Z11.52 Encounter for screening for COVID-19
CPT/HCPCS: 36415; 80053; 80143; 80179; 80307; 81001; 82077; 82948; 84443; 85025; 87635; 99285; A9270